=== PATIENT | female | born 1985 | race Two or more races ===

== ENCOUNTER → 2024-05-02 | Outpatient (CLI) | payer OTHER ==
[2024-05-02 10:59] LABS: Free T3 2.9 pg/mL (2.3-4.2)
[2024-05-02 11:00] LABS: Eosinophils # (auto) 0 10 ^3/uL (0-0.8); Free T4 (Free Thyroxine) 1.17 ng/dL (0.89-1.76); Lymphocytes # (auto) 0.7 10 ^3/uL (0.4-5.4); Lymphocytes % (auto) 13.9 % (10.0-50.0); Monocytes # (auto) 0.6 10 ^3/uL (0-1.3)
[2024-05-02 11:01] LABS: Basophils # (auto) 0 10 ^3/uL (0-0.2); Basophils % (auto) 0.7 % (0.0-2.0); Eosinophils % (auto) 0.8 % (0.0-7.0); Follicle Stimulating Hormone 15.68 IU/L (SEE BELOW); Hematocrit 39.7 % (36.0-46.0); Hemoglobin 13.8 g/dL (12.2-16.2); Leuteinizing Hormone 5.1 IU/L; Mean Corpuscular Hemoglobin 35.4 pg (28.0-32.0); Mean Corpuscular Hgb Conc. 34.7 g/dL (32.0-36.0); Mean Corpuscular Volume 102.2 fL (80.0-100.0); Monocytes % (auto) 12.3 % (0.0-12.0); Neutrophils # (auto) 3.7 10 ^3/uL (1.6-8.6); Neutrophils % (auto) 72.3 % (37.0-80.0); Platelet Count (auto) 229 10^3/uL (140-450); Red Blood Cells 3.88 10^6/uL (4.0-5.20); Red Cell Distribution Width 11.5 % (11.8-14.3); White Blood Cell 5.1 10^3/uL (4.4-10.8)
[2024-05-02 11:17] LABS: Alkaline Phosphatase 57 U/L (46-116); Anion Gap 10 (5-15); BUN/Creatinine Ratio 7.2 (10.0-20.0); Carbon Dioxide 24 mmol/L (20-31); Glucose 76 mg/dL (74-106); LDL Cholesterol 67 mg/dL (< 100); Potassium 4.6 mmol/L (3.5-5.1); Triglycerides 73 mg/dL (< 150)
[2024-05-02 11:18] LABS: Alanine Aminotransferase 165 U/L (7-40); Albumin 5.1 g/dL (3.2-4.8); Aspartate Aminotransferase 216 U/L (13-40); Bilirubin, Total 1.1 mg/dL (0.2-1.0); Blood Urea Nitrogen 5 mg/dL (9-23); Calcium 10.5 mg/dL (8.7-10.4); Chloride 95 mmol/L (98-107); Cholesterol 245 mg/dL (< 200); HDL Cholesterol 150 mg/dL (40-59); Sodium 129 mmol/L (136-145); Total Protein 7.9 g/dL (5.7-8.2)
== END | disposition home or self-care (01) ==
LOC: LAB 09:35
PROVIDERS: ATTEND Nurse Practitioner Family
DX: Z00.01 Encounter for general adult medical examination with abnormal findings (principal); N95.1 Menopausal and female climacteric states; E34.9 Endocrine disorder, unspecified; I10 Essential (primary) hypertension
CPT/HCPCS: 36415; 80053; 80061; 82670; 83001; 83002; 84144; 84402; 84403; 84439; 84443; 84481; 85025

== ENCOUNTER → 2024-05-21 | Outpatient (CLI) | payer OTHER ==
--- NOTE | 2024-05-21 11:28 | DVH ---
US US GUIDANCE FOR NEEDLE PLACEME HISTORY: MASS AND DISCHARGE RIGHT BREAST PROCEDURE: Informed consent was obtained. The patient was positioned supine on the table, and limited US was performed of the right breast. The skin overlying the biopsy site was prepped with chlorhexi dine which was allowed to dry. Time out was performed. The entry site was anesthetized with 1% lidoca ine. A 16 gauge Bard Marquee needle was advanced into the mass. Multiple core biopsy samples were obt ained using the 16 gauge biopsy needle. The samples were sent to formalin to pathology for analysis. A marker clip was deployed in the mass. Imaging through the biopsy site was performed. No immediate c omplication was identified. FINDINGS: Right breast mass at 5 o Clock.. Intra-procedural images show the biopsy needle at the lesi on. No significant post biopsy hemorrhage is identified. IMPRESSION: US-guided biopsy of the right breast mass. Pathology results pending.
== END | disposition home or self-care (01) ==
LOC: US 09:54
PROVIDERS: ATTEND Nurse Practitioner Family
DX: N63.14 Unspecified lump in the right breast, lower inner quadrant (principal); N62 Hypertrophy of breast
CPT/HCPCS: 19083; 88305; 88312; 88342; A4648; 76942